=== PATIENT | male | born 1960 | race Caucasian/White ===

== ENCOUNTER 2016-11-18 05:58 | Emergency (ER) | payer OTHER ==
[~2016-11-18 05:58] MED LIST: ASPIRIN EC325 MG PO; COMBIVENT1 PUFF INH; COREG3.125 MG PO; CRESTOR20 MG PO; ISOSORBIDE MONO30 MG PO; LEXAPRO20 MG PO; MAGNESIUM OXID400 MG PO; NITROQUICK0.4 MG SL; PLAVIX75 MG PO; PRINIVIL5 MG PO; SYNTHROID50 MCG PO
== END 2016-11-18 06:45 | disposition home or self-care (01) ==
LOC: ER 05:58
DX: F22 Delusional disorders (principal); I10 Essential (primary) hypertension; E78.5 Hyperlipidemia, unspecified; E07.9 Disorder of thyroid, unspecified; F41.9 Anxiety disorder, unspecified; Z87.891 Personal history of nicotine dependence; Z79.82 Long term (current) use of aspirin; Z79.02 Long term (current) use of antithrombotics/antiplatelets; Z79.899 Other long term (current) drug therapy